=== PATIENT | male | born 1965 | race African-American/Black ===

== ENCOUNTER 2017-11-02 09:00 | Outpatient (CLI) | payer BC ==
[2017-11-02 10:52] LABS: BASOPHILS % (AUTO) 0.6 % (0-1); EOSINOPHILS # (AUTO) 0.2 X10'3 (0-0.9); EOSINOPHILS % (AUTO) 2.9 % (0-6); HEMATOCRIT 37.7 % (42.0-52.0); HEMOGLOBIN 12.2 g/dl (14.0-17.9); LYMPHOCYTES % (AUTO) 46.1 % (21-51); MEAN CORPUSCULAR HEMOGLOBIN 26.1 PG (27.0-31.0); MEAN CORPUSCULAR HGB CONC 32.4 % (33.0-36.5); MEAN CORPUSCULAR VOLUME 80.3 FL (78-98); MEAN PLATELET VOLUME 8.4 FL (7.4-10.4); MONOCYTES # (AUTO) 0.6 X10'3 (0-0.9); MONOCYTES % (AUTO) 9.2 % (2-12); NEUTROPHILS # (AUTO) 2.6 X10'3 (1.8-7.7); NEUTROPHILS % (AUTO) 41.2 % (42-75); PLATELET COUNT 290 X10'3 (140-440); RED BLOOD COUNT 4.69 X10'6 (4.70-6.10); RED CELL DISTRIBUTION WIDTH 13.8 % (11.5-14.5); WHITE BLOOD COUNT 6.4 X10'3 (4.5-11.0)
[2017-11-02 11:24] LABS: ANION GAP 6 (8-16); BLOOD UREA NITROGEN 41 MG/DL (7-18); CHLORIDE 105 MMOL/L (99-107); GLUCOSE 275 MG/DL (70-104); POTASSIUM 4.6 MMOL/L (3.5-5.1); SODIUM 140 MMOL/L (135-145)
[2017-11-02 11:25] LABS: ALBUMIN 2.4 G/DL (3.4-5.0); BUN/CREATININE RATIO 18.6 (5.4-32.0); CALCIUM 8.4 MG/DL (8.5-10.1); VANCOMYCIN,TROUGH 12.5 UG/ML (6.0-14.0); eGFR 32 ML/MIN
== END 2017-11-02 23:59 | disposition home or self-care (01) ==
LOC: LAB SPEC 09:00
PROVIDERS: ATTEND Emergency Medicine
DX: L03.031 Cellulitis of right toe (principal)
CPT/HCPCS: 36415; 80048; 80202; 85025

== ENCOUNTER → 2017-11-08 | Outpatient (CLI) | payer BC ==
[2017-11-08 10:55] LABS: BASOPHILS % (AUTO) 0.5 % (0-1); EOSINOPHILS # (AUTO) 0.2 X10'3 (0-0.9); EOSINOPHILS % (AUTO) 3.5 % (0-6); HEMATOCRIT 37.1 % (42.0-52.0); LYMPHOCYTES % (AUTO) 38.3 % (21-51); MEAN CORPUSCULAR HEMOGLOBIN 25.9 PG (27.0-31.0); MEAN CORPUSCULAR HGB CONC 32.4 % (33.0-36.5); MEAN CORPUSCULAR VOLUME 79.8 FL (78-98); MEAN PLATELET VOLUME 8.9 FL (7.4-10.4); MONOCYTES # (AUTO) 0.5 X10'3 (0-0.9); MONOCYTES % (AUTO) 10.1 % (2-12); NEUTROPHILS # (AUTO) 2.5 X10'3 (1.8-7.7); NEUTROPHILS % (AUTO) 47.6 % (42-75); PLATELET COUNT 261 X10'3 (140-440); RED BLOOD COUNT 4.65 X10'6 (4.70-6.10); RED CELL DISTRIBUTION WIDTH 14.1 % (11.5-14.5); WHITE BLOOD COUNT 5.3 X10'3 (4.5-11.0)
[2017-11-08 11:02] LABS: ALBUMIN 2.6 G/DL (3.4-5.0); ANION GAP 3 (8-16); BLOOD UREA NITROGEN 36 MG/DL (7-18); BUN/CREATININE RATIO 16.4 (5.4-32.0); C-REACTIVE PROTEIN 0.25 MG/DL (0.0-0.5); CALCIUM 8.5 MG/DL (8.5-10.1); CHLORIDE 107 MMOL/L (99-107); GLUCOSE 189 MG/DL (70-104); POTASSIUM 4.4 MMOL/L (3.5-5.1); SODIUM 141 MMOL/L (135-145); TOTAL CARBON DIOXIDE 30.7 MMOL/L (24-32); VANCOMYCIN,TROUGH 16.2 UG/ML (6.0-14.0); eGFR 32 ML/MIN
== END ==
LOC: LAB SPEC 10:17
PROVIDERS: ATTEND Emergency Medicine
DX: L03.031 Cellulitis of right toe (principal)
CPT/HCPCS: 36415; 80048; 80202; 85025; 85651; 86140

== ENCOUNTER 2018-12-04 10:44 | Emergency (ER) | payer MEDICAID, OTHER ==
[~2018-12-04] VITALS: Ht 188 cm; Wt 109.0 kg
[2018-12-04 11:09] VITALS: BP 160/92
[2018-12-04] MEDS ORDERED: TAM75C PO (13:20)
== END 2018-12-04 13:31 | disposition home or self-care (01) ==
LOC: ER 10:44
DX: J06.9 Acute upper respiratory infection, unspecified (principal); I10 Essential (primary) hypertension; E11.9 Type 2 diabetes mellitus without complications; H61.22 Impacted cerumen, left ear; R59.1 Generalized enlarged lymph nodes; Z79.899 Other long term (current) drug therapy
CPT/HCPCS: 87502; 87503; 99283

== ENCOUNTER 2019-06-21 11:16 | Emergency (ER) | payer MEDICAID, OTHER ==
[~2019-06-21] VITALS: Ht 188 cm; Wt 113.6 kg
[2019-06-21 11:19] VITALS: BP 186/99
[2019-06-21] MEDS ORDERED: LIDOcaine Viscous 15ml cup MM ONE (11:55)
[2019-06-21] MEDS ORDERED: mag hydrox/Alum hydrox/simeth 30ml oral suspension PO ONE (11:55)
[2019-06-21] MEDS ORDERED: LIDO20SO16 PO (11:58)
[2019-06-21] MEDS ORDERED: PENI500T2 PO (11:58)
--- NOTE | 2019-06-21 12:00 | NUR ---
THROAT IS RED AND SWOLLEN
== END 2019-06-21 12:55 | disposition home or self-care (01) ==
LOC: ER 11:16
DX: J02.0 Streptococcal pharyngitis (principal); I10 Essential (primary) hypertension; E11.9 Type 2 diabetes mellitus without complications
CPT/HCPCS: 99283

== ENCOUNTER 2020-05-27 08:39 | Day surgery (SDC) | payer MEDICAID ==
[~2020-05-27 08:39] MED LIST: CLON0.1T2 PO; METO-395 PO; NOR5T PO; OMEP-50 PO; SEVE800T8 PO
[2020-05-27] MEDS ORDERED: normal saline 1000ml 1,000 ML IV PRN (08:55)
[2020-05-27] MEDS ORDERED: LIDOcaine 1% 30ml preserv. free vial SQ PRN (08:55)
[2020-05-27] MEDS ORDERED: AMLO5TAB4 PO (09:03)
[2020-05-27] MEDS ORDERED: CLON-529 PO (09:04)
[2020-05-27] MEDS ORDERED: METO-539 PO (09:05)
[2020-05-27] MEDS ORDERED: SEVE800T8 PO (09:07)
[2020-05-27 09:34] LABS: BASOPHILS % (AUTO) 0.4 % (0-1); EOSINOPHILS # (AUTO) 0.1 X10'3 (0-0.9); EOSINOPHILS % (AUTO) 1.5 % (0-6); HEMATOCRIT 38.8 % (42.0-52.0); HEMOGLOBIN 12.4 g/dl (14.0-17.9); LYMPHOCYTES # (AUTO) 2.2 X10'3 (1.1-4.8); LYMPHOCYTES % (AUTO) 36.6 % (21-51); MEAN CORPUSCULAR HEMOGLOBIN 27.2 PG (27.0-31.0); MONOCYTES # (AUTO) 0.7 X10'3 (0-0.9); MONOCYTES % (AUTO) 11.5 % (2-12); NEUTROPHILS # (AUTO) 2.9 X10'3 (1.8-7.7); PLATELET COUNT 198 X10'3 (140-440); RED BLOOD COUNT 4.57 X10'6 (4.70-6.10); RED CELL DISTRIBUTION WIDTH 17.5 % (11.5-14.5); WHITE BLOOD COUNT 5.9 X10'3 (4.5-11.0)
[2020-05-27 09:38] VITALS: BP 174/94
[2020-05-27 09:43] LABS: ALBUMIN 3.2 G/DL (3.4-5.0); ANION GAP 8 (8-16); BLOOD UREA NITROGEN 41 MG/DL (7-18); BUN/CREATININE RATIO 4.2 (5.4-32.0); CALCIUM 8.3 MG/DL (8.5-10.1); CHLORIDE 102 MMOL/L (99-107); CREATININE 9.69 MG/DL (0.60-1.10); GLUCOSE 176 MG/DL (70-104); POTASSIUM 4.2 MMOL/L (3.5-5.1); SODIUM 138 MMOL/L (135-145); TOTAL CARBON DIOXIDE 27.7 MMOL/L (24-32); eGFR 7 ML/MIN
[2020-05-27] MEDS ORDERED: heparin 1,000unit/ml 10ml vial 10 ML ONE (10:34)
[2020-05-27] MEDS ORDERED: iohexol 300mg/ml 100ml inj. ONE (10:35)
[2020-05-27] MEDS ORDERED: fentaNYL/PF 50MCG/1 ML 2ML syringe ONE ×2 (10:35→11:04)
[2020-05-27] MEDS ORDERED: midazolam 2 mg/2 ml injection ONE ×2 (10:35→11:04)
[2020-05-27] MEDS ORDERED: LIDOcaine 1%/PF 5ML 10 MG/ML VIAL ONE (10:35)
[2020-05-27] MEDS ORDERED: heparin 1,000 UNITS/NS 500ml 500 ML ONE (10:35)
[2020-05-27 12:00] VITALS: BP 171/91
[2020-05-27 12:15] VITALS: BP 197/104
[2020-05-27 12:30] VITALS: BP 156/85
[2020-05-27 12:45] VITALS: BP 153/83
== END 2020-05-27 13:13 | disposition home or self-care (01) ==
LOC: SSTAY O 08:39
PROVIDERS: ATTEND Radiology Vascular & Interventional Radiology
DX: T82.858A Stenosis of other vascular prosthetic devices, implants and grafts, initial encounter (principal); T82.49XA Other complication of vascular dialysis catheter, initial encounter; E11.22 Type 2 diabetes mellitus with diabetic chronic kidney disease; I12.9 Hypertensive chronic kidney disease with stage 1 through stage 4 chronic kidney disease, or unspecified chronic kidney disease; N18.9 Chronic kidney disease, unspecified; K21.9 Gastro-esophageal reflux disease without esophagitis; Z99.2 Dependence on renal dialysis; Z79.899 Other long term (current) drug therapy; Z11.59 Encounter for screening for other viral diseases; Y83.2 Surgical operation with anastomosis, bypass or graft as the cause of abnormal reaction of the patient, or of later complication, without mention of misadventure at the time of the procedure; Y92.89 Other specified places as the place of occurrence of the external cause; Y83.8 Other surgical procedures as the cause of abnormal reaction of the patient, or of later complication, without mention of misadventure at the time of the procedure
CPT/HCPCS: 36415; 36581; 36902; 76937; 77001; 80048; 82948; 85025; 85610; 99152; 99153; C1725; C1750; C1769; C1894; J1644; J2250; J3010; Q9967; U0003

== ENCOUNTER 2020-09-24 08:41 | Day surgery (SDC) | payer MEDICAID ==
[~2020-09-24] VITALS: Ht 188 cm; Wt 96.3 kg
[~2020-09-24 08:41] MED LIST changes: +AMLO5TAB4 PO; +CLON-529 PO; -CLON0.1T2 PO; -METO-395 PO; +METO-539 PO; -NOR5T PO
[2020-09-24] MEDS ORDERED: normal saline 1000ml 1,000 ML IV PRN (09:00)
[2020-09-24] MEDS ORDERED: normal saline 1000ml 1,000 ML IV SCH (09:00)
[2020-09-24] MEDS ORDERED: LANTUS SQ (09:34)
[2020-09-24 09:39] VITALS: BP 145/93
[2020-09-24 09:43] LABS: ALBUMIN 3.7 G/DL (3.4-5.0); ANION GAP 9 (8-16); BLOOD UREA NITROGEN 29 MG/DL (7-18); BUN/CREATININE RATIO 4.2 (5.4-32.0); CALCIUM 8.8 MG/DL (8.5-10.1); CHLORIDE 100 MMOL/L (99-107); CREATININE 6.87 MG/DL (0.60-1.10); GLUCOSE 167 MG/DL (70-104); POTASSIUM 4.3 MMOL/L (3.5-5.1); SODIUM 137 MMOL/L (135-145); TOTAL CARBON DIOXIDE 27.8 MMOL/L (24-32); eGFR 10 ML/MIN
[2020-09-24 09:49] LABS: BASOPHILS % (AUTO) 0.2 % (0-1); EOSINOPHILS # (AUTO) 0.1 X10'3 (0-0.9); EOSINOPHILS % (AUTO) 1.3 % (0-6); HEMATOCRIT 39.1 % (42.0-52.0); HEMOGLOBIN 12.7 g/dl (14.0-17.9); LYMPHOCYTES # (AUTO) 1.5 X10'3 (1.1-4.8); LYMPHOCYTES % (AUTO) 22.2 % (21-51); MEAN CORPUSCULAR HEMOGLOBIN 28.3 PG (27.0-31.0); MEAN CORPUSCULAR HGB CONC 32.4 g/dL (33.0-36.5); MEAN CORPUSCULAR VOLUME 87.4 FL (78-98); MEAN PLATELET VOLUME 7.7 FL (7.4-10.4); MONOCYTES # (AUTO) 0.6 X10'3 (0-0.9); MONOCYTES % (AUTO) 9.4 % (2-12); NEUTROPHILS # (AUTO) 4.4 X10'3 (1.8-7.7); NEUTROPHILS % (AUTO) 66.9 % (42-75); PLATELET COUNT 165 X10'3 (140-440); RED BLOOD COUNT 4.47 X10'6 (4.70-6.10); RED CELL DISTRIBUTION WIDTH 15.6 % (11.5-14.5); WHITE BLOOD COUNT 6.7 X10'3 (4.5-11.0)
[2020-09-24] MEDS ORDERED: midazolam 2 mg/2 ml injection ONE ×2 (10:44→11:16)
[2020-09-24] MEDS ORDERED: iohexol 300mg/ml 100ml inj. ONE (10:44)
[2020-09-24] MEDS ORDERED: heparin 1,000 UNITS/NS 500ml 500 ML ONE (10:44)
[2020-09-24] MEDS ORDERED: LIDOcaine 1%/PF 5ML 10 MG/ML VIAL ONE (10:44)
[2020-09-24] MEDS ORDERED: fentaNYL/PF 50MCG/1 ML 2ML syringe ONE ×2 (10:44→11:16)
[2020-09-24] MEDS ORDERED: hydrALAZINE 20mg/ml inj. IV ONE (11:09)
[2020-09-24 12:00] VITALS: BP 138/77
[2020-09-24 12:15] VITALS: BP 119/73
[2020-09-24 12:30] VITALS: BP 127/94
[2020-09-24 12:45] VITALS: BP 132/78
[2020-09-24 13:00] VITALS: BP 131/77
== END 2020-09-24 13:15 | disposition home or self-care (01) ==
LOC: SSTAY O 08:41
PROVIDERS: ATTEND Radiology Diagnostic Radiology
DX: T82.858A Stenosis of other vascular prosthetic devices, implants and grafts, initial encounter (principal); Z20.828 Contact with and (suspected) exposure to other viral communicable diseases; E11.22 Type 2 diabetes mellitus with diabetic chronic kidney disease; I12.9 Hypertensive chronic kidney disease with stage 1 through stage 4 chronic kidney disease, or unspecified chronic kidney disease; N18.9 Chronic kidney disease, unspecified; K21.9 Gastro-esophageal reflux disease without esophagitis; Z79.4 Long term (current) use of insulin; Z79.899 Other long term (current) drug therapy; Z83.3 Family history of diabetes mellitus; Y83.8 Other surgical procedures as the cause of abnormal reaction of the patient, or of later complication, without mention of misadventure at the time of the procedure; Y92.89 Other specified places as the place of occurrence of the external cause
CPT/HCPCS: 36415; 36902; 76937; 80048; 82948; 85025; 85610; 87635; C1725; C1769; C1894; C9803; J0360; J1644; J2250; J3010; Q9967; 99152; 99153

== ENCOUNTER 2021-01-21 09:16 | Emergency (ER) | payer MEDICARE, MEDICAID ==
[~2021-01-21] VITALS: Ht 188 cm; Wt 95.0 kg
[~2021-01-21 09:16] MED LIST changes: +LANTUS SQ; -OMEP-50 PO
[2021-01-21 09:22] VITALS: BP 115/63
== END 2021-01-21 10:37 | disposition left against medical advice (07) ==
LOC: ER 09:16
DX: K61.1 Rectal abscess (principal); I10 Essential (primary) hypertension; E11.9 Type 2 diabetes mellitus without complications; G89.29 Other chronic pain; Z79.899 Other long term (current) drug therapy; Z79.4 Long term (current) use of insulin; Z87.442 Personal history of urinary calculi
CPT/HCPCS: 99281

== ENCOUNTER 2021-11-14 18:41 | Emergency (ER) | payer MEDICARE, MEDICAID ==
[~2021-11-14] VITALS: Ht 188 cm; Wt 100.0 kg
[2021-11-14 19:01] VITALS: BP 242/128
[2021-11-14] MEDS ORDERED: hyDRALAzine 10mg tablet PO ONE (20:05)
== END 2021-11-14 20:10 | disposition left against medical advice (07) ==
LOC: ER 18:43
DX: I10 Essential (primary) hypertension (principal); R45.1 Restlessness and agitation; E11.9 Type 2 diabetes mellitus without complications; Z79.4 Long term (current) use of insulin; Z79.899 Other long term (current) drug therapy
CPT/HCPCS: 99281

== ENCOUNTER 2024-11-27 08:49 | Day surgery (SDC) | payer MEDICARE, MEDICAID ==
[2024-11-26 14:22] LABS: BASOPHILS % (AUTO) 0.4 % (0-1); EOSINOPHILS # (AUTO) 0.2 X10'3 (0-0.9); EOSINOPHILS % (AUTO) 4.3 % (0-6); LYMPHOCYTES # (AUTO) 1.5 X10'3 (1.1-4.8); LYMPHOCYTES % (AUTO) 37.6 % (21-51); MEAN CORPUSCULAR HEMOGLOBIN 28.6 PG (27.0-31.0); MEAN CORPUSCULAR HGB CONC 32.7 g/dL (33.0-36.5); MEAN CORPUSCULAR VOLUME 87.4 FL (78-98); MONOCYTES # (AUTO) 0.5 X10'3 (0-0.9); MONOCYTES % (AUTO) 13.2 % (2-12); NEUTROPHILS # (AUTO) 1.8 X10'3 (1.8-7.7); NEUTROPHILS % (AUTO) 44.5 % (42-75); PRE OP HEMATOCRIT 35.5 % (42.0-52.0); PRE OP HEMOGLOBIN 11.6 g/dL (14.0-17.9); PRE OP PLATELET COUNT 166 X10'3 (140-440); PRE OP WHITE BLOOD COUNT 4.1 10'3 (4.8-10.8); RED BLOOD COUNT 4.06 X10'6 (4.70-6.10); RED CELL DISTRIBUTION WIDTH 17.4 % (11.5-14.5)
[2024-11-26 14:23] LABS: BILIRUBIN,URINE NEGATIVE (Neg); CLARITY,URINE CLEAR (Clear); COLOR,URINE YELLOW (Yellow); GLUCOSE, URINE 500 mg/dl (Neg); KETONES,URINE NEGATIVE (Neg); LEUKOCYTE ESTERASE ,URINE NEGATIVE (Neg); NITRITES, URINE NEGATIVE (Neg); OCCULT BLOOD,URINE SMALL (Neg); PH,URINE 8.5 (4.8-8.0); PROTEIN,URINE 100 mg/dl (Neg); UROBILINOGEN,URINE 0.2 E.U/dL (0.2-1.0)
[2024-11-26 14:26] LABS: UA COLLECTION TYPE CLN CATCH MIDSTREAM
[2024-11-26 14:30] LABS: BACTERIA,URINE FEW /HPF (Neg); SQUAMOUS EPITHELIAL CELL,UR MODERATE /LPF (FEW)
[2024-11-26 14:31] LABS: CELLULAR CAST 0-4 /LPF (NEGATIVE); RENAL CELLS, URINE FEW /HPF; WBC CLUMPS,URINE FEW /HPF (NEGATIVE)
[2024-11-26 14:44] LABS: ALBUMIN 3.4 G/DL (3.4-5.0); ALBUMIN/GLOBULIN RATIO 0.7 (1.1-1.5); ALKALINE PHOSPHATASE 105 IU/L (46-116); BLOOD UREA NITROGEN 19 MG/DL (7-18); BUN/CREATININE RATIO 2.9 (10.0-20.0); CALCIUM 8.5 MG/DL (8.5-10.1); CHLORIDE 94 MMOL/L (99-107); CREATININE 6.58 MG/DL (0.60-1.10); PRE OP ALT 36 U/L (30-65); PRE OP ANION GAP 8 (8-16); PRE OP AST 35 U/L (10-37); PRE OP BILIRUB, TOTAL 0.7 MG/DL (0.0-1.0); PRE OP GLUCOSE 194 MG/DL (70-104); PRE OP POTASSIUM 4.6 MMOL/L (3.4-5.1); PRE OP SODIUM 136 MMOL/L (135-145); TOTAL CARBON DIOXIDE 34.2 MMOL/L (24-32); TOTAL PROTEIN 8.3 G/DL (6.4-8.2); eGFR 11 ML/MIN
[2024-11-26] MEDS: DOCUMENT DATE & TIME OF BETA-BLOCKER PO ONE (19:00)
[~2024-11-27] VITALS: Ht 188 cm; Wt 94.3 kg
[2024-11-27] VITALS (17 sets, daily range): BP systolic 152–201; BP diastolic 93–111; PULSE 68–82; RESP 12–16; TEMP 98.1; O2SAT 96–100
[~2024-11-27 08:49] MED LIST changes: -AMLO5TAB4 PO; -CLON-529 PO; +CLON0.2T PO; +LABE100T8 PO; +LOSA100T58 PO; -METO-539 PO; +PHO667C PO; -SEVE800T8 PO; +normal saline 1000ml 1,000 ML IV SCH
[2024-11-27] MEDS: famotidine 20mg tablet PO ONE (09:46)
[2024-11-27] MEDS ORDERED: meperidine/PF 25mg/ml syringe IV PRN ×3 (10:30)
[2024-11-27] MEDS ORDERED: ondansetron/PF 4mg/2ml inj IV PRN (10:30)
[2024-11-27] MEDS ORDERED: morphine 2 MG/ML inj. syringe IV PRN (10:30)
[2024-11-27] MEDS ORDERED: morphine 4 MG/ML inj SYRINge IV PRN (10:30)
[2024-11-27] MEDS ORDERED: proCHLORperazine 10 MG/2 ml inj IV PRN (10:30)
[2024-11-27] MEDS ORDERED: ringers solution, lacted 1,000 ML IV SCH (10:30)
[2024-11-27 10:33] LABS: ISTAT HGB 12.2 g/dl (14.0-17.9); ISTAT IONIZED CALCIUM 1.03 mmol/L (1.03-1.32); ISTAT K 4.9 mmol/L (3.5-5.1); POC BUN/CREATININE RATIO 3.3 (5.4-32.0)
[2024-11-27] MEDS ORDERED: sevoflurane 250ml liquid IH ONE (11:55)
[2024-11-27] MEDS: ceFAZolin 2gm in dextrose, iso 50 ML IV ONE (12:05)
[2024-11-27] MEDS ORDERED: fentaNYL/PF 50MCG/1 ML 2ML syringe ONE (12:06)
[2024-11-27] MEDS ORDERED: midazolam 1 mg/ML 2ml injection ONE (12:06)
[2024-11-27] MEDS ORDERED: propofol inj 20 ML IV ONE (12:49)
[2024-11-27] MEDS ORDERED: LIDOcaine 1%/PF 5ML 10 MG/ML VIAL ONE (12:49)
[2024-11-27] MEDS: acetaminophen 1,000mg/100ml IV 100 ML IV ONE (13:00)
[2024-11-27] MEDS: labetalol 20mg/4ml (5mg/ml) syringe IV PRN (13:47)
[2024-11-27] MEDS: enalaprilat 1.25mg/ml 2ml vial IV PRN (14:06)
[2024-11-27] MEDS: cloNIDine 0.1 mg tablet PO ONE (14:34)
== END 2024-11-27 14:50 | disposition home or self-care (01) ==
LOC: PAS 08:49
PROVIDERS: ATTEND Podiatrist Foot & Ankle Surgery
DX: E11.69 Type 2 diabetes mellitus with other specified complication (principal); M86.8X7 Other osteomyelitis, ankle and foot; Z79.899 Other long term (current) drug therapy; I10 Essential (primary) hypertension; E11.9 Type 2 diabetes mellitus without complications; Z79.4 Long term (current) use of insulin; Z99.2 Dependence on renal dialysis
CPT/HCPCS: 28810; 36415; 80047; 80053; 81001; 82948; 85025; 87077; 87088; 87186; 93005; A4618; A6222; A6253; A6402; A6449; A7000; J0690; J1100; J2250; J2704; J3010; J3490; J7030; J7120; Z7506; Z7508; Z7512; Z7610